=== PATIENT | female | born 1995 | race Caucasian/White ===

== ENCOUNTER → 2016-07-22 | Outpatient (CLI) | payer BC ==
--- NOTE | 2016-07-22 17:20 | US ---
EXAMINATION: Transvaginal pelvic ultrasound HISTORY: Bleeding COMPARISON: None TECHNIQUE: Grayscale and color Doppler images obtained transvaginally. FINDINGS: Uterus is normal in size, contour, and echogenicity without a focal uterine mass. There is an echogenic structure within the endometrial stripe consistent with 2-D. The IUD is noted within t he mid to lower uterine segment without extension into the cervical region. Both the left and right ovaries are normal in size, contour, and echogenicity demonstrating normal c olor and spectral Doppler flow. Small follicles are noted predominantly within the left ovary. No ad nexal masses. No significant free pelvic fluid. IMPRESSION: 1. International units edema noted within the mid to lower aspect of the uterus without extension to the cervical region. 2. Otherwise unremarkable pelvic ultrasound.
== END | disposition home or self-care (01) ==
LOC: MW.CHOBGYN 13:42
PROVIDERS: ATTEND Advanced Practice Midwife
DX: T83.9XXA Unspecified complication of genitourinary prosthetic device, implant and graft, initial encounter (principal); R60.9 Edema, unspecified
CPT/HCPCS: 76830; 76830-26

== ENCOUNTER 2018-06-22 11:21 | Emergency (ER) | payer BC ==
--- NOTE | 2018-06-22 12:07 | EDM.PDOC ---
ED HPI GENERAL MEDICAL PROBLEM - General Chief Complaint: Lower Extremity Injury/Pain Stated Complaint: INJURY TO FOOT Time Seen by Provider: 06/22/18 11:33 Source of Information: Reports: Patient History Limitations: Reports: No Limitations - History of Present Illness INITIAL COMMENTS - FREE TEXT/NARRATIVE: History of present illness: []Patient had a can and will over her right ankle yesterday and she fell down the stairs this morning. She went to her chiropractor's office who did x-rays and showed a malleolus fracture. She is here for splinting. Review of systems: As per history of present illness and below otherwise all systems reviewed and negative. Past medical history: As per history of present illness and as reviewed below otherwise noncontributory. Surgical history: As per history of present illness and as reviewed below otherwise noncontributory. Social history: No reported history of drug or alcohol abuse. Family history: As per history of present illness and as reviewed below otherwise noncontributory. Physical exam: General: Well developed, well nourished in NAD HEENT: Atraumatic, normocephalic, pupils reactive, negative for conjunctival pallor or scleral icterus, mucous membranes moist, throat clear, neck supple, nontender, trachea midline. Lungs: Clear to auscultation, breath sounds equal bilaterally, chest nontender. Heart: S1S2, regular, negative for clicks, rubs, or JVD. Abdomen: NABS, Soft, nondistended, nontender. Negative for masses or hepatosplenomegaly. Negative for costovertebral tenderness. Pelvis: Stable nontender. Genitourinary: Deferred. Rectal: Deferred. Extremities: Atraumatic, negative for cords or calf pain. Neurovascular unremarkable. Neuro: Awake, alert, oriented. Cranial nerves II through XII unremarkable. Cerebellum unremarkable. Motor and sensory unremarkable throughout. Exam nonfocal. Skin:warm and dry Diagnostics: None Therapeutics: Declined ED Course: Stable Impression: Right ankle fracture Prescriptions: Declined Plan: Ice, elevation, wear splint follow-up with ortho Definitive disposition and diagnosis as appropriate pending reevaluation and review of above. right ankle Pain Score (Numeric/FACES): 4 - Related Data Allergies Allergy/AdvReac Type Severity Reaction Status Date / Time No Known Allergies Allergy Verified 06/22/18 11:38 Home Meds: Home Meds . [No Known Home Meds] 06/22/18 [History] Past Medical History - Past Health History Medical/Surgical History: Denies Medical/Surgical History - Infectious Disease History Infectious Disease History: Reports: Chicken Pox - Past Surgical History GI Surgical History: Reports: Cholecystectomy Social & Family History - Family History Family Medical History: Noncontributory - Tobacco Use Smoking Status *Q: Never Smoker - Recreational Drug Use Recreational Drug Use: No Review of Systems - Review of Systems Review Of Systems: ROS reveals no pertinent complaints other than HPI. ED EXAM, GENERAL - Physical Exam Exam: See Below (The history of present illness) Course - Vital Signs Last Recorded V/S: Last Vital Signs Temp Pulse 98 06/22/18 11:52 Resp 18 06/22/18 11:52 BP 142/83 H 06/22/18 11:52 Pulse Ox 96 06/22/18 11:52 Departure - Departure Time of Disposition: 12:05 Disposition: Home, Self-Care 01 Condition: Good Clinical Impression: Ankle fracture, right Qualifiers: Encounter type: initial encounter Fracture type: closed Qualified Code(s): S82.891A - Other fracture of right lower leg, initial encounter for closed fracture - Discharge Information *PRESCRIPTION DRUG MONITORING PROGRAM REVIEWED*: No *COPY OF PRESCRIPTION DRUG MONITORING REPORT IN PATIENT CANDIE: No Referrals: PCP,Unknown [Primary Care Provider] - Forms: ED Department Discharge Additional Instructions: The following information is given to patients seen in the emergency department who are being discharged to home. This information is to outline your options for follow-up care. We provide all patients seen in our emergency department with a follow-up referral. The need for follow-up, as well as the timing and circumstances, are variable depending upon the specifics of your emergency department visit. If you don't have a primary care physician on staff, we will provide you with a referral. We always advise you to contact your personal physician following an emergency department visit to inform them of the circumstance of the visit and for follow-up with them and/or the need for any referrals to a consulting specialist. The emergency department will also refer you to a specialist when appropriate. This referral assures that you have the opportunity for follow-up care with a specialist. All of these measure are taken in an effort to provide you with optimal care, which includes your follow-up. Under all circumstances we always encourage you to contact your private physician who remains a resource for coordinating your care. When calling for follow-up care, please make the office aware that this follow-up is from your recent emergency room visit. If for any reason you are refused follow-up, please contact the [facility] Emergency Department at and asked to speak to the emergency department charge nurse. Follow-up with Dr. Barnett except available appointment [facility] - [facility] Professional Building [address] [place] [address], [address] [place] [address]
== END 2018-06-22 12:10 | disposition home or self-care (01) ==
LOC: MW.ED 11:21
DX: S82.891A Other fracture of right lower leg, initial encounter for closed fracture (principal); W10.9XXA Fall (on) (from) unspecified stairs and steps, initial encounter
CPT/HCPCS: 99282

== ENCOUNTER 2019-04-04 21:27 | Emergency (ER) | payer BC ==
[2019-04-04] MEDS ORDERED: Ondansetron 4 MG/2 ML SDV IVPUSH ONE (21:42)
[2019-04-04] MEDS ORDERED: Sodium Chloride 0.9% 1,000 ML IV ONE (21:42)
--- NOTE | 2019-04-04 23:03 | EDM.PDOC ---
ED HPI GENERAL MEDICAL PROBLEM - General Chief Complaint: MANAGER PAYROLL Problem Stated Complaint: 14WKS VOMITTING Time Seen by Provider: 04/04/19 23:03 Source of Information: Reports: Patient History Limitations: Reports: No Limitations - History of Present Illness INITIAL COMMENTS - FREE TEXT/NARRATIVE: HISTORY OF PRESENT ILLNESS: Patient is a 23-year-old G1, P0 at 14 weeks who presents with vomiting. Patient states she has had emesis throughout and has been started on multiple medications by her MANAGER PAYROLL including: Reglan, Zofran, Diclegis, Promethazine without relief of symptoms. Has had a multiple episodes of nonbloody nonbilious emesis for the past 3 days unable to keep down p.o. Here for IV fluids. Denies any abdominal pain. No vaginal bleeding or discharge. No urinary symptoms. No fevers chills or rash. No neck stiffness. Has otherwise been in her normal state of health. Has had ultrasound done by her MANAGER PAYROLL which showed intrauterine according to patient. REVIEW OF SYSTEMS: Other than the symptoms associated with the present events, the following is reported with regard to recent health: General: (-) fever. HENT: (-) congestion. Respiratory: (-) cough. Cardiovascular: (-) chest pain. GI: (-) abdominal pain. (+) n/v : (-) urinary complaints. Musculoskeletal: (-) other aches or pains. Endocrine: (+) generalized weakness. Neurological: (-) localized weakness. Skin: (-) rash PAST MEDICAL HISTORY: reviewed as per nursing notes SOCIAL HISTORY: reviewed as per nursing notes, MEDICATIONS: Per nurse's note ALLERGIES: Per nurse's note, reviewed by me PHYSICAL EXAMINATION: GENERALIZED APPEARANCE: well developed, well nourished in mild distress VITAL SIGNS: Per nurse's note, reviewed by me SKIN: Warm, dry; (-) cyanosis; (-) rash. HEAD: (-) scalp swelling, (-) tenderness. EYES: (-) conjunctival pallor, (-) scleral icterus. ENMT: (-) stridor; mucous membranes moist. NECK: (-) tenderness, (-) stiffness, CHEST AND RESPIRATORY: (-) rales, (-) rhonchi, (-) wheezes; breath sounds equal bilaterally. HEART AND CARDIOVASCULAR: (-) irregularity; (-) murmur, (-) gallop. ABDOMEN AND GI: Soft; (-) tenderness, (-) guarding, (-) rebound, (-) palpable masses, (-) CVAT EXTREMITIES: (-) deformity, (-) edema. NEURO AND PSYCH: Alert. Cranial nerves grossly intact; strength symmetric. gait steady DIAGNOSTICS: Labs reviewed: UA demonstrating UTI vs contamination EMERGENCY DEPARTMENT COURSE AND TREATMENT: Patient's condition improved during Emergency Department evaluation. Given 2L NS with improvement of symptoms. UA borderline. As she is , will err on the side of caution and start antibiotics. To f/u with OB tomorrow and return with any new or worsneing symptoms. Well hydrated and non-toxic at time of discharge. After history, physical exam, and diagnostic evaluation, the etiology for the patient's vomiting is likely due to hyperemesis gravidarum. On serial examination, the abdomen remained soft without peritoneal signs. Laboratory data was non- diagnostic. After treatment, vomiting resolved and hydration status was satisfactory. I think the patient is at low risk for significant abdominal pathology based on serial exams and evaluation. . The patient's questions were answered, and discharge precautions and reasons to return to the ED were discussed. PLAN AND FOLLOW-UP: Patient received written and verbal instructions regarding this condition. Return to ED immediately with any new or worsening symptoms. Follow up to be arranged by Patient with OB tomorrow for further evaluation. Given discharge precautions. Patient expressed verbal understanding. - Related Data Allergies Allergy/AdvReac Type Severity Reaction Status Date / Time No Known Allergies Allergy Verified 04/04/19 22:19 Home Meds: Home Meds Vit37/Iron/Folic Acid [Prenata] 1 each PO DAILY 04/04/19 [History] Promethazine HCl 12.5 mg PO ASDIRECTED 04/04/19 [History] Nitrofurantoin Monohyd/M-Cryst [Macrobid 100 mg Capsule] 100 mg PO BID #10 capsule 04/05/19 [Rx] Past Medical History - Past Health History Medical/Surgical History: Denies Medical/Surgical History HEENT History: Reports: None Cardiovascular History: Reports: None Respiratory History: Reports: None Genitourinary History: Reports: None MANAGER PAYROLL History: Reports: Other MANAGER PAYROLL History: currently 14 weeks Musculoskeletal History: Reports: None Neurological History: Reports: None Psychiatric History: Reports: None Endocrine/Metabolic History: Reports: None Hematologic History: Reports: None Immunologic History: Reports: None Oncologic (Cancer) History: Reports: None Dermatologic History: Reports: None - Infectious Disease History Infectious Disease History: Reports: Chicken Pox - Past Surgical History Head Surgeries/Procedures: Reports: None HEENT Surgical History: Reports: Oral Surgery GI Surgical History: Reports: Cholecystectomy Social & Family History - Family History Family Medical History: Noncontributory - Tobacco Use Smoking Status *Q: Never Smoker - Recreational Drug Use Recreational Drug Use: No ED ROS GENERAL - Review of Systems Review Of Systems: See Below (see dictation) ED EXAM, GENERAL - Physical Exam Exam: See Below (see dictation) Course - Vital Signs Last Recorded V/S: Last Vital Signs Temp 97.5 F 04/04/19 22:16 Pulse 91 04/04/19 22:16 Resp 16 04/04/19 22:16 BP 119/71 04/04/19 22:16 Pulse Ox 98 04/04/19 22:16 - Orders/Labs/Meds Orders: Active Orders 24 hr Category Date Time Status Heart Tones [ Heart Rate] [RC] Click to Edit Care 04/04/19 21:37 Active CULTURE URINE [RM] Stat Lab 04/04/19 22:23 Received Labs: Laboratory Tests 04/04/19 04/04/19 04/04/19 Range/Units 22:23 23:25 23:25 WBC 6.73 (4.0-11.0) K/uL RBC 4.26 L (4.30-5.90) M/uL Hgb 13.0 (12.0-16.0) g/dL Hct 37.3 (36.0-46.0) % MCV 87.6 (80.0-98.0) fL MCH 30.5 (27.0-32.0) pg MCHC 34.9 (31.0-37.0) g/dL RDW Std Deviation 39.4 (28.0-62.0) fl RDW Coeff of Mariely 12 (11.0-15.0) % Plt Count 218 (150-400) K/uL MPV 10.10 (7.40-12.00) fL Neut % (Auto) 71.9 (48.0-80.0) % Lymph % (Auto) 22.4 (16.0-40.0) % [place] % (Auto) 4.9 (0.0-15.0) % Eos % (Auto) 0.7 (0.0-7.0) % Baso % (Auto) 0.1 (0.0-1.5) % Neut # (Auto) 4.8 (1.4-5.7) K/uL Lymph # (Auto) 1.5 (0.6-2.4) K/uL [place] # (Auto) 0.3 (0.0-0.8) K/uL Eos # (Auto) 0.1 (0.0-0.7) K/uL Baso # (Auto) 0.0 (0.0-0.1) K/uL Nucleated RBC % 0.0 /100WBC Nucleated RBCs # 0 K/uL Sodium 139 (136-145) mmol/L Potassium 4.2 (3.5-5.1) mmol/L Chloride 104 (98-107) mmol/L Carbon Dioxide 25.9 (21.0-32.0) mmol/L BUN 6 L (7.0-18.0) mg/dL Creatinine 0.7 (0.6-1.0) mg/dL Est Cr Clr Drug Dosing 110.55 mL/min Estimated GFR (MDRD) > 60.0 ml/min Glucose 93 (74-106) mg/dL Calcium 8.8 (8.5-10.1) mg/dL Total Bilirubin 0.5 (0.2-1.0) mg/dL AST 10 L (15-37) IU/L ALT 14 (14-63) IU/L Alkaline Phosphatase 47 (46-116) U/L Total Protein 6.6 (6.4-8.2) g/dL Albumin 3.3 L (3.4-5.0) g/dL Globulin 3.3 (2.6-4.0) g/dL Albumin/Globulin Ratio 1.0 (0.9-1.6) Urine Color YELLOW Urine Appearance SLT CLOUDY Urine pH 6.0 (5.0-8.0) Ur Specific [place] >= 1.030 (1.001-1.035) Urine Protein TRACE H (NEGATIVE) mg/dL Urine Glucose (UA) NEGATIVE (NEGATIVE) mg/dL Urine Ketones >=80 (NEGATIVE) mg/dL Urine Occult Blood NEGATIVE (NEGATIVE) Urine Nitrite NEGATIVE (NEGATIVE) Urine Bilirubin SMALL H (NEGATIVE) Urine Ictotest NEGATIVE Urine Urobilinogen 1.0 (<2.0) EU/dL Ur Leukocyte Esterase TRACE H (NEGATIVE) Urine RBC 0-2 (0-2/HPF) Urine WBC 0-3 (0-5/HPF) Ur Epithelial Cells MANY (NONE-FEW) Urine Bacteria 1+ H (NEGATIVE) Urine Mucus MODERATE (NONE-MOD) Meds: Medications Discontinued Medications Generic Name Dose Route Start Last Admin Trade Name Freq PRN Reason Stop Dose Admin Sodium Chloride 1,000 mls @ 999 mls/hr 04/04/19 21:42 04/04/19 22:49 Normal Saline IV 04/04/19 22:42 999 mls/hr STAT ONE Administration Sodium Chloride 1,000 mls @ 1,000 mls/hr 04/05/19 00:53 04/05/19 01:22 Normal Saline IV 04/05/19 01:52 1,000 mls/hr .Bolus ONE Administration Ondansetron HCl 4 mg 04/04/19 21:42 04/04/19 22:49 Zofran IVPUSH 04/04/19 21:43 4 mg ONETIME ONE Administration Departure - Departure Time of Disposition: 02:53 Disposition: Home, Self-Care 01 Condition: Good Clinical Impression: Hyperemesis gravidarum, UTI (urinary tract infection) - Discharge Information *PRESCRIPTION DRUG MONITORING PROGRAM REVIEWED*: Not Applicable *COPY OF PRESCRIPTION DRUG MONITORING REPORT IN PATIENT CANDIE: Not Applicable Prescriptions: Nitrofurantoin Monohyd/M-Cryst [Macrobid 100 mg Capsule] 100 mg PO BID #10 capsule Instructions: Eating Plan for Hyperemesis Gravidarum, Hyperemesis Gravidarum, Urinary Tract Infection, Adult, [id number] Referrals: Eve Morley CNM [Primary Care Provider] - 1 Day Forms: ED Department Discharge Additional Instructions: The following information is given to patients seen in the emergency department who are being discharged to home. This information is to outline your options for follow-up care. We provide all patients seen in our emergency department with a follow-up referral. The need for follow-up, as well as the timing and circumstances, are variable depending upon the specifics of your emergency department visit. If you don't have a primary care physician on staff, we will provide you with a referral. We always advise you to contact your personal physician following an emergency department visit to inform them of the circumstance of the visit and for follow-up with them and/or the need for any referrals to a consulting specialist. The emergency department will also refer you to a specialist when appropriate. This referral assures that you have the opportunity for follow-up care with a specialist. All of these measure are taken in an effort to provide you with optimal care, which includes your follow-up. Under all circumstances we always encourage you to contact your private physician who remains a resource for coordinating your care. When calling for follow-up care, please make the office aware that this follow-up is from your recent emergency room visit. If for any reason you are refused follow-up, please contact the [facility] Emergency Department at and asked to speak to the emergency department charge nurse. Sepsis Event Note - Evaluation Sepsis Screening Result: No Definite Risk - Focused Exam Vital Signs: Vital Signs Temp Pulse Resp BP Pulse Ox 04/04/19 22:16 97.5 F 91 16 119/71 98 Date Exam was Performed: 04/05/19 Time Exam was Performed: 03:04
[2019-04-04 23:53] LABS: BLOOD UREA NITROGEN,BUN 6 mg/dL (7.0-18.0); CARBON DIOXIDE,CO2 25.9 mmol/L (21.0-32.0); CHLORIDE,CL 104 mmol/L (98-107); GLUCOSE RANDOM 93 mg/dL (74-106); POTASSIUM,K 4.2 mmol/L (3.5-5.1); SODIUM,NA 139 mmol/L (136-145)
[2019-04-05] MEDS ORDERED: Sodium Chloride 0.9% 1,000 ML IV ONE (00:53)
== END 2019-04-05 03:15 | disposition home or self-care (01) ==
LOC: MW.ED 21:27
DX: O21.0 Mild hyperemesis gravidarum (principal); O23.41 Unspecified infection of urinary tract in pregnancy, first trimester; Z3A.14 14 weeks gestation of pregnancy
CPT/HCPCS: 36415; 80053; 81001; 85025; 87086; 96361; 96374; 99284; J2405; J7030; 99283

== ENCOUNTER 2019-10-01 16:53 | Inpatient (IN) | payer BC ==
[2019-10-01] MEDS ORDERED: Lidocaine 1% 50 ML MDV INJECT PRN (17:39)
[2019-10-01] MEDS ORDERED: Misoprostol 25 MCG (1/4 of 100 MCG) Tab VAG PRN (17:39)
[2019-10-01] MEDS ORDERED: Misoprostol 200 MCG Tab PO PRN (17:39)
[2019-10-01] MEDS ORDERED: Ondansetron 4 MG/2 ML SDV IVPUSH PRN (17:39)
[2019-10-01] MEDS ORDERED: Tranexamic Acid 1,000 MG in Sodium Chloride 0.9% 100 ML IV PRN (17:39)
[2019-10-01] MEDS ORDERED: Terbutaline 1 MG/ML SDV SUBCUT PRN (17:39)
[2019-10-01] MEDS ORDERED: Water For Irrigation,Sterile 1,000 ML Container IRR PRN (17:39)
[2019-10-01] MEDS ORDERED: Butorphanol 1 MG/ML SDV IVPUSH PRN (17:39)
[2019-10-01] MEDS ORDERED: Sodium Chloride 0.9% 10 ML SDV IV PRN (17:39)
[2019-10-01] MEDS ORDERED: Carboprost Tromethamine 250 MCG/1 ML Amp IM PRN (17:39)
[2019-10-01] MEDS ORDERED: Methylergonovine 0.2 MG/1 ML Amp IM PRN (17:39)
[2019-10-01] MEDS ORDERED: Oxytocin/0.9 % Sodium Chloride 30 UNIT/500 ML BAG IV SCH ×2 (17:45)
[2019-10-01] MEDS: Lactated Ringers 1,000 ML IV SCH (18:32)
[2019-10-01] MEDS: Misoprostol 25 MCG (1/4 of 100 MCG) Tab VAG PRN (22:25)
[2019-10-02] MEDS: Misoprostol 25 MCG (1/4 of 100 MCG) Tab VAG PRN ×2 (02:45→07:53)
[2019-10-02] MEDS: Lactated Ringers 1,000 ML IV SCH ×2 (02:55→20:22)
[2019-10-02] MEDS ORDERED: fentaNYL 100 MCG/2 ML SDV ONE (16:31)
[2019-10-02] MEDS ORDERED: Ropivacaine HCl/PF 100 ML ONE (16:32)
--- NOTE | 2019-10-02 17:14 | PCM.PREANE ---
Preanesthetic Assessment - Procedure Proposed Procedure: Continuous labor epidural - Anesthesia/Transfusion/Family Hx Anesthesia History: Prior Anesthesia Without Reaction (Cholecystectomy without anesthesia complications) Family History of Anesthesia Reaction: No Transfusion History: No Prior Transfusion(s) - Review of Systems General: No Symptoms Pulmonary: No Symptoms Cardiovascular: No Symptoms Gastrointestinal: Nausea (Pt reports nausea/vomiting throughout . Symptom unchanged at present.), Vomiting Neurological: No Symptoms Other: Reports: None - Physical Assessment NPO Status Date: 10/02/19 (Clear liquids) NPO Status Time: 16:00 (Clear liquids) Height: 1.65 m Weight: 80.739 kg ASA Class: 2 Mental Status: Alert & Oriented x3 Airway Class: Mallampati = 2 Dentition: Reports: Normal Dentition Thyro-Mental Finger Breadths: 4 ROM/Head Extension: Full Lungs: Normal Respiratory Effort Cardiovascular: Regular Rate, Regular Rhythm - Lab Values: Laboratory Last Values WBC 9.89 K/uL (4.0-11.0) 10/01/19 17: RBC 4.26 M/uL (4.30-5.90) L 10/01/19 17:28 Hgb 13.0 g/dL (12.0-16.0) 10/01/19 17:28 Hct 38.7 % (36.0-46.0) 10/01/19 17:28 MCV 90.8 fL (80.0-98.0) 10/01/19 17:28 MCH 30.5 pg (27.0-32.0) 10/01/19 17: MCHC 33.6 g/dL (31.0-37.0) 10/01/19 17:28 RDW Std Deviation 42.1 fl (28.0-62.0) 10/01/19 17:28 RDW Coeff of Mariely 13 % (11.0-15.0) 10/01/19 17: Plt Count 224 K/uL (150-400) 10/01/19 17: MPV 11.80 fL (7.40-12.00) 10/01/19 17:28 Nucleated RBC % 0.0 /100WBC 10/01/19 17:28 Nucleated RBCs # 0 K/uL 10/01/19 17:28 COVID-19 (JILL) NEGATIVE (NEGATIVE) 10/01/19 17:32 Blood Type B NEGATIVE 10/01/19 18:00 Antibody Screen NEGATIVE 10/01/19 18:00 - Allergies Allergies/Adverse Reactions: Allergies Allergy/AdvReac Type Severity Reaction Status Date / Time No Known Allergies Allergy Verified 04/04/19 22:19 - Acknowledgements Anesthesia Type Planned: Epidural Pt an Appropriate Candidate for the Planned Anesthesia: Yes Alternatives and Risks of Anesthesia Discussed w Pt/Guardian: Yes Pt/Guardian Understands and Agrees with Anesthesia Plan: Yes Additional Comments: Pt assessed at 1632. Also discussed risks, benefits, and alternatives to epidural with patient and S.O.. All questions answered and concerns addressed. Pt consented by COMMERCIAL CREDIT SPECIALIST with RN witness present. 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: Other OB/BYN History: currently 14 weeks Musculoskeletal History: Reports: None Neurological History: Reports: None Psychiatric History: Reports: None Endocrine/Metabolic History: Reports: None Hematologic History: Reports: None Immunologic History: Reports: None Oncologic (Cancer) History: Reports: None Dermatologic History: Reports: None - Infectious Disease History Infectious Disease History: Reports: Chicken Pox - Past Surgical History Head Surgeries/Procedures: Reports: None HEENT Surgical History: Reports: Oral Surgery GI Surgical History: Reports: Cholecystectomy - HOME MEDS Home Medications: Home Meds Vit37/Iron/Folic Acid [Prenata] 1 each PO DAILY 04/04/19 [History] Promethazine HCl 12.5 mg PO ASDIRECTED 04/04/19 [History] Nitrofurantoin Monohyd/M-Cryst [Macrobid 100 mg Capsule] 100 mg PO BID #10 capsule 04/05/19 [Rx] - CURRENT (IN HOUSE) MEDS Current Meds: Current Medications Butorphanol Tartrate (Stadol) 1 mg IVPUSH Q1H PRN PRN Reason: Pain Carboprost Tromethamine (Hemabate Ds) 250 mcg IM ASDIRECTED PRN PRN Reason: Post Hemorrhage Oxytocin/Sodium Chloride (Oxytocin 30 Unit/500 Ml-Ns) 30 unit in 500 mls @ 2 mls/hr IV TITRATE PAYAM; Protocol Last Titration: 10/02/19 15:00 Dose: 8 munits/min, 8 mls/hr Documented by: Lactated Ringer's (Ringers, Lactated) 1,000 mls @ 150 mls/hr IV ASDIRECTED [facility] Last Admin: 10/02/19 02:55 Dose: 150 mls/hr Documented by: Oxytocin/Sodium Chloride (Oxytocin 30 Unit/500 Ml-Ns) 30 unit in 500 mls @ 999 mls/hr IV TITRATE [facility] Tranexamic Acid 1,000 mg/ (Sodium Chloride) 110 mls @ 660 mls/hr IV ONETIME PRN PRN Reason: Bleeding Lidocaine HCl (Xylocaine 1%) 50 ml INJECT ONETIME PRN PRN Reason: Laceration repair Methylergonovine Maleate (Methergine) 0.2 mg IM ASDIRECTED PRN PRN Reason: Post Hemorrhage Misoprostol (Cytotec) 25 mcg VAG ONETIME PRN PRN Reason: Cervical Ripening Last Admin: 10/01/19 18:32 Dose: 25 mcg Documented by: Misoprostol (Cytotec) 25 mcg VAG Q4H PRN PRN Reason: Cervical Ripening Last Admin: 10/02/19 07:53 Dose: 25 mcg Documented by: Misoprostol (Cytotec) 200 mcg PO ONETIME PRN PRN Reason: Post Hemorrhage Ondansetron HCl (Zofran) 4 mg IVPUSH Q4H PRN PRN Reason: Nausea/Vomiting Sodium Chloride (Normal Saline) 10 ml IV ASDIRECTED PRN PRN Reason: IV Use Sterile Water (Sterile Water For Irrigation) 1,000 ml IRR ASDIRECTED PRN PRN Reason: delivery Terbutaline Sulfate (Brethine) 0.25 mg SUBCUT ASDIRECTED PRN PRN Reason: Tacysystole Discontinued Medications Fentanyl (Sublimaze) Confirm Administered Dose 200 mcg .ROUTE .STK-MED ONE Stop: 10/02/19 16:32 Ropivacaine (Naropin 0.2%) Confirm Administered Dose 100 mls @ as directed .ROUTE .STK-MED ONE Stop: 10/02/19 16:33
[2019-10-02] MEDS ORDERED: Bisacodyl 10 MG Supp RECTAL PRN (22:41)
[2019-10-02] MEDS ORDERED: Witch Hazel Medicated Pads 40/Jar TOP PRN (22:41)
[2019-10-02] MEDS ORDERED: Lanolin 100% Cream 7 GM Tube TOP PRN (22:41)
[2019-10-02] MEDS ORDERED: Docusate Sodium 100 MG Cap PO PRN (22:41)
[2019-10-02] MEDS ORDERED: Benzocaine/Menthol 20%-0.5% Spray 78 GM Cannister TOP PRN (22:41)
[2019-10-02] MEDS ORDERED: Acetaminophen 500 MG Tab PO PRN (22:41)
[2019-10-02] MEDS ORDERED: oxyCODONE 5 MG Tab PO PRN (22:41)
--- NOTE | 2019-10-02 22:48 | PCM.DEL ---
<Jose C Vaughan - Last Filed: 10/02/19 22:42> L & D Note - General Info Date of Service: 10/02/19 - Delivery Note Labor: Spontaneous, Augmented by Oxytocin Cervical Ripening Method: Misoprostil Delivery Outcome: Livebirth Infant Delivery Method: Spontaneous Vaginal Delivery-Single Infant Delivery Mode: Spontaneous Presentation: Left Occiput Anterior (DIANE) Nuchal Cord: None (Body cord) Anesthesia Type: Epidural Amniotic Fluid Description: Clear Episiotomy Type: None Laceration: 1st Degree Suture type: Vicryl Suture size: 2-0 Placenta: Intact, Spontaneous Cord: 3 Vessels Estimated Blood Loss: 300 Resuscitation Needed: No : Suctioned, Bulb Syringe, Stimulated, Warmed, Addison Used, Warmer Used Score 1 min: 8 Score 5 min: 9 Delivery Comments (Free Text/Narrative):: Liveborn male born at 2213 weighing 4270g, apgars 8 and 9 - General Info Date of Service: 10/02/19 - Patient Data Weight - Most Recent: 80.739 kg Med Orders - Current: Current Medications Butorphanol Tartrate (Stadol) 1 mg IVPUSH Q1H PRN PRN Reason: Pain Carboprost Tromethamine (Hemabate Ds) 250 mcg IM ASDIRECTED PRN PRN Reason: Post Hemorrhage Oxytocin/Sodium Chloride (Oxytocin 30 Unit/500 Ml-Ns) 30 unit in 500 mls @ 2 mls/hr IV TITRATE PAYAM; Protocol Last Titration: 10/02/19 19:20 Dose: 12 munits/min, 12 mls/hr Documented by: Lactated Ringer's (Ringers, Lactated) 1,000 mls @ 150 mls/hr IV ASDIRECTED PAYAM Last Admin: 10/02/19 20:22 Dose: 150 mls/hr Documented by: Oxytocin/Sodium Chloride (Oxytocin 30 Unit/500 Ml-Ns) 30 unit in 500 mls @ 999 mls/hr IV TITRATE PAYAM Tranexamic Acid 1,000 mg/ (Sodium Chloride) 110 mls @ 660 mls/hr IV ONETIME PRN PRN Reason: Bleeding Lidocaine HCl (Xylocaine 1%) 50 ml INJECT ONETIME PRN PRN Reason: Laceration repair Methylergonovine Maleate (Methergine) 0.2 mg IM ASDIRECTED PRN PRN Reason: Post Hemorrhage Misoprostol (Cytotec) 25 mcg VAG ONETIME PRN PRN Reason: Cervical Ripening Last Admin: 10/01/19 18:32 Dose: 25 mcg Documented by: Misoprostol (Cytotec) 25 mcg VAG Q4H PRN PRN Reason: Cervical Ripening Last Admin: 10/02/19 07:53 Dose: 25 mcg Documented by: Misoprostol (Cytotec) 200 mcg PO ONETIME PRN PRN Reason: Post Hemorrhage Ondansetron HCl (Zofran) 4 mg IVPUSH Q4H PRN PRN Reason: Nausea/Vomiting Last Admin: 10/02/19 17:15 Dose: 4 mg Documented by: Sodium Chloride (Normal Saline) 10 ml IV ASDIRECTED PRN PRN Reason: IV Use Sterile Water (Sterile Water For Irrigation) 1,000 ml IRR ASDIRECTED PRN PRN Reason: delivery Terbutaline Sulfate (Brethine) 0.25 mg SUBCUT ASDIRECTED PRN PRN Reason: Tacysystole Discontinued Medications Fentanyl (Sublimaze) Confirm Administered Dose 200 mcg .ROUTE .STK-MED ONE Stop: 10/02/19 16:32 Ropivacaine (Naropin 0.2%) Confirm Administered Dose 100 mls @ as directed .ROUTE .SynackMED ONE Stop: 10/02/19 16:33 - Problem List & Annotations (1) Vaginal delivery SNOMED Code(s): 808846738 Code(s): O80 - ENCOUNTER FOR FULL-TERM UNCOMPLICATED DELIVERY Status: Acute Current Visit: Yes - Problem List Review Problem List Initiated/Reviewed/Updated: Yes - Assessment Assessment:: 24yo IOL for late term. S/P . No complications. - Plan Plan:: Admit to for routine care Encourage Monitor georgiana <Susi Charles - Last Filed: 10/02/19 22:51> L & D Note - General Info Mother's Due Date: 09/21/19 - Patient Data Med Orders - Current: Current Medications Acetaminophen (Tylenol Extra Strength) 1,000 mg PO Q6H PRN PRN Reason: Pain Benzocaine/Menthol (Dermoplast Pain Relief 20%-0.5% [place]) 78 gm TOP ASDIRECTED PRN PRN Reason: Perineal Comfort Measure Bisacodyl (Dulcolax) 10 mg RECTAL ONETIME PRN PRN Reason: Constipation Butorphanol Tartrate (Stadol) 1 mg IVPUSH Q1H PRN PRN Reason: Pain Carboprost Tromethamine (Hemabate Ds) 250 mcg IM ASDIRECTED PRN PRN Reason: Post Hemorrhage Docusate Sodium (Colace) 100 mg PO BID PRN PRN Reason: Constipation Emollient Ointment (Lansinoh Hpa) 0 gm TOP ASDIRECTED PRN PRN Reason: Sore Nipples Oxytocin/Sodium Chloride (Oxytocin 30 Unit/500 Ml-Ns) 30 unit in 500 mls @ 2 mls/hr IV TITRATE PAYAM; Protocol Last Titration: 10/02/19 19:20 Dose: 12 munits/min, 12 mls/hr Documented by: Lactated Ringer's (Ringers, Lactated) 1,000 mls @ 150 mls/hr IV ASDIRECTED PAYAM Last Admin: 10/02/19 20:22 Dose: 150 mls/hr Documented by: Oxytocin/Sodium Chloride (Oxytocin 30 Unit/500 Ml-Ns) 30 unit in 500 mls @ 999 mls/hr IV TITRATE PAYAM Tranexamic Acid 1,000 mg/ (Sodium Chloride) 110 mls @ 660 mls/hr IV ONETIME PRN PRN Reason: Bleeding Ibuprofen (Motrin) 800 mg PO Q8H PRN PRN Reason: Pain Lidocaine HCl (Xylocaine 1%) 50 ml INJECT ONETIME PRN PRN Reason: Laceration repair Methylergonovine Maleate (Methergine) 0.2 mg IM ASDIRECTED PRN PRN Reason: Post Hemorrhage Misoprostol (Cytotec) 25 mcg VAG ONETIME PRN PRN Reason: Cervical Ripening Last Admin: 10/01/19 18:32 Dose: 25 mcg Documented by: Misoprostol (Cytotec) 25 mcg VAG Q4H PRN PRN Reason: Cervical Ripening Last Admin: 10/02/19 07:53 Dose: 25 mcg Documented by: Misoprostol (Cytotec) 200 mcg PO ONETIME PRN PRN Reason: Post Hemorrhage Ondansetron HCl (Zofran) 4 mg IVPUSH Q4H PRN PRN Reason: Nausea/Vomiting Last Admin: 10/02/19 17:15 Dose: 4 mg Documented by: Oxycodone HCl (Oxycodone) 5 mg PO Q2H PRN PRN Reason: Pain Sodium Chloride (Normal Saline) 10 ml IV ASDIRECTED PRN PRN Reason: IV Use Sterile Water (Sterile Water For Irrigation) 1,000 ml IRR ASDIRECTED PRN PRN Reason: delivery Terbutaline Sulfate (Brethine) 0.25 mg SUBCUT ASDIRECTED PRN PRN Reason: Tacysystole Witch Sandra (Tucks) 1 pad TOP ASDIRECTED PRN PRN Reason: comfort care Discontinued Medications Fentanyl (Sublimaze) Confirm Administered Dose 200 mcg .ROUTE .STK-MED ONE Stop: 10/02/19 16:32 Ropivacaine (Naropin 0.2%) Confirm Administered Dose 100 mls @ as directed .ROUTE .STK-MED ONE Stop: 10/02/19 16:33 - My Orders Last 24 Hours: My Active Orders 10/02/19 22:41 Patient Status [ADT] Routine May Shower [RC] ASDIRECTED Notify Provider Vital Signs [RC] ASDIRECTED Up ad Zoie [RC] ASDIRECTED Vital Signs [RC] PER UNIT ROUTINE RHIG WORKUP, [BBK] Routine Acetaminophen [Tylenol Extra Strength] 1,000 mg PO Q6H PRN Benzocaine/Menthol [Dermoplast Pain Relief 20%-0.5% [place]] 78 gm TOP ASDIRECTED PRN Docusate Sodium [Colace] 100 mg PO BID PRN Ibuprofen [Motrin] 800 mg PO Q8H PRN Lanolin [Lansinoh HPA] See Dose Instructions TOP ASDIRECTED PRN bisacodyL [Dulcolax] 10 mg RECTAL ONETIME PRN oxyCODONE 5 mg PO Q2H PRN witch Sandra [Tucks] 1 pad TOP ASDIRECTED PRN Assess Lochia [WOMSER] Per Unit Routine Assess Uterine Involution [WOMSER] Per Unit Routine Breast Pump [WOMSER] Per Unit Routine Peripheral IV Discontinue [OM.PC] Routine Resuscitation Status Routine 10/02/19 22:42 Cooling Warming Measures [RC] ASDIRECTED Ice Therapy [OM.PC] Per Unit Routine Perineal Care [OM.PC] Per Unit Routine Sitz Bath [OM.PC] Per Unit Routine 10/03/19 05:11 HEMOGLOBIN/HEMATOCRIT,HH [HEME] Timed 10/03/19 Breakfast Regular Diet [DIET] - Plan Plan:: Rh negative, will perform Rhogam studies. Agree with the above. See dictation for more details.
[2019-10-03] MEDS: Ibuprofen 800 MG Tab PO PRN ×2 (00:44→11:21)
--- NOTE | 2019-10-03 08:03 | PCM.PNPP ---
<Jose C Vaughan - Last Filed: 10/03/19 07:58> - General Info Date of Service: 10/03/19 Subjective Update: Pt doing well today. Pain is mild and well-controlled with motrin. Has been ambulating well and tolerating oral intake. Bleeding is mild. going well. Functional Status: Reports: Pain Controlled - Review of Systems General: Reports: No Symptoms HEENT: Reports: No Symptoms Pulmonary: Reports: No Symptoms Cardiovascular: Reports: No Symptoms Gastrointestinal: Reports: Abdominal Pain Genitourinary: Reports: No Symptoms Musculoskeletal: Reports: No Symptoms Skin: Reports: No Symptoms Neurological: Reports: No Symptoms Psychiatric: Reports: No Symptoms - General Info Date of Service: 10/03/19 - Patient Data Vital Signs - Most Recent: Last Vital Signs Temp 97.6 F 10/03/19 07:55 Pulse 82 10/03/19 07:55 Resp 18 10/03/19 07:55 BP 126/72 10/03/19 07:55 Pulse Ox 95 10/03/19 07:55 Weight - Most Recent: 80.739 kg Lab Results - Last 24 Hours: Laboratory Results - last 24 hr 10/03/19 Range/Units 05:23 Hgb 11.6 L (12.0-16.0) g/dL Hct 34.5 L (36.0-46.0) % Med Orders - Current: Current Medications Acetaminophen (Tylenol Extra Strength) 1,000 mg PO Q6H PRN PRN Reason: Pain Benzocaine/Menthol (Dermoplast Pain Relief 20%-0.5% [place]) 78 gm TOP ASDIRECTED PRN PRN Reason: Perineal Comfort Measure Last Admin: 10/03/19 00:44 Dose: 1 applic Documented by: Bisacodyl (Dulcolax) 10 mg RECTAL ONETIME PRN PRN Reason: Constipation Butorphanol Tartrate (Stadol) 1 mg IVPUSH Q1H PRN PRN Reason: Pain Carboprost Tromethamine (Hemabate Ds) 250 mcg IM ASDIRECTED PRN PRN Reason: Post Hemorrhage Docusate Sodium (Colace) 100 mg PO BID PRN PRN Reason: Constipation Emollient Ointment (Lansinoh Hpa) 0 gm TOP ASDIRECTED PRN PRN Reason: Sore Nipples Oxytocin/Sodium Chloride (Oxytocin 30 Unit/500 Ml-Ns) 30 unit in 500 mls @ 2 mls/hr IV TITRATE PAYAM; Protocol Last Titration: 10/02/19 19:20 Dose: 12 munits/min, 12 mls/hr Documented by: Lactated Ringer's (Ringers, Lactated) 1,000 mls @ 150 mls/hr IV ASDIRECTED PAYAM Last Admin: 10/02/19 20:22 Dose: 150 mls/hr Documented by: Oxytocin/Sodium Chloride (Oxytocin 30 Unit/500 Ml-Ns) 30 unit in 500 mls @ 999 mls/hr IV TITRATE PAYAM Tranexamic Acid 1,000 mg/ (Sodium Chloride) 110 mls @ 660 mls/hr IV ONETIME PRN PRN Reason: Bleeding Ibuprofen (Motrin) 800 mg PO Q8H PRN PRN Reason: Pain Last Admin: 10/03/19 00:44 Dose: 800 mg Documented by: Lidocaine HCl (Xylocaine 1%) 50 ml INJECT ONETIME PRN PRN Reason: Laceration repair Methylergonovine Maleate (Methergine) 0.2 mg IM ASDIRECTED PRN PRN Reason: Post Hemorrhage Misoprostol (Cytotec) 25 mcg VAG ONETIME PRN PRN Reason: Cervical Ripening Last Admin: 10/01/19 18:32 Dose: 25 mcg Documented by: Misoprostol (Cytotec) 25 mcg VAG Q4H PRN PRN Reason: Cervical Ripening Last Admin: 10/02/19 07:53 Dose: 25 mcg Documented by: Misoprostol (Cytotec) 200 mcg PO ONETIME PRN PRN Reason: Post Hemorrhage Ondansetron HCl (Zofran) 4 mg IVPUSH Q4H PRN PRN Reason: Nausea/Vomiting Last Admin: 10/02/19 17:15 Dose: 4 mg Documented by: Oxycodone HCl (Oxycodone) 5 mg PO Q2H PRN PRN Reason: Pain Sodium Chloride (Normal Saline) 10 ml IV ASDIRECTED PRN PRN Reason: IV Use Sterile Water (Sterile Water For Irrigation) 1,000 ml IRR ASDIRECTED PRN PRN Reason: delivery Terbutaline Sulfate (Brethine) 0.25 mg SUBCUT ASDIRECTED PRN PRN Reason: Tacysystole Witch Sandra (Tucks) 1 pad TOP ASDIRECTED PRN PRN Reason: comfort care Last Admin: 10/03/19 00:43 Dose: 1 applic Documented by: Discontinued Medications Fentanyl (Sublimaze) Confirm Administered Dose 200 mcg .ROUTE .STK-MED ONE Stop: 10/02/19 16:32 Ropivacaine (Naropin 0.2%) Confirm Administered Dose 100 mls @ as directed .ROUTE .STK-MED ONE Stop: 10/02/19 16:33 - Interaction Support Person: - Exam General: Alert, Oriented, No Acute Distress HEENT: Pupils Equal, EOMI Neck: Supple, No JVD Lungs: Clear to Auscultation, Normal Respiratory Effort. No: Crackles, Rales, Rhonchi, Wheezing Cardiovascular: Regular Rate, Regular Rhythm, No Murmurs. No: Gallops, Rubs GI/Abdominal Exam: Normal Bowel Sounds, Soft, No Distention, Tender. No: Guarding, Rigid Extremities: Normal Inspection, Non-Tender, Pedal Edema Skin: Warm, Dry, Intact Neurological: No New Focal Deficit, Normal Speech, Normal Tone Psy/Mental Status: Alert, Normal Affect, Normal Mood - Problem List & Annotations (1) Vaginal delivery SNOMED Code(s): 484795715 Code(s): O80 - ENCOUNTER FOR FULL-TERM UNCOMPLICATED DELIVERY Status: Acute Current Visit: Yes - Problem List Review Problem List Initiated/Reviewed/Updated: Yes - Assessment Assessment:: 24yo IOL for late term. S/P . No complications. PPD#1 - Plan Plan:: Routine care. Discharge at 24 hours Baby blood B negative, no RhoGam needed <Susi Charles - Last Filed: 10/03/19 08:10> - General Info Functional Status: Reports: Ambulating, Urinating - Patient Data Vital Signs - Most Recent: Last Vital Signs Temp 36.4 C 10/03/19 07:55 Pulse 82 10/03/19 07:55 Resp 18 10/03/19 07:55 BP 126/72 10/03/19 07:55 Pulse Ox 95 10/03/19 07:55 Lab Results - Last 24 Hours: Laboratory Results - last 24 hr 10/03/19 Range/Units 05:23 Hgb 11.6 L (12.0-16.0) g/dL Hct 34.5 L (36.0-46.0) % Med Orders - Current: Current Medications Acetaminophen (Tylenol Extra Strength) 1,000 mg PO Q6H PRN PRN Reason: Pain Benzocaine/Menthol (Dermoplast Pain Relief 20%-0.5% [place]) 78 gm TOP ASDIRECTED PRN PRN Reason: Perineal Comfort Measure Last Admin: 10/03/19 00:44 Dose: 1 applic Documented by: Bisacodyl (Dulcolax) 10 mg RECTAL ONETIME PRN PRN Reason: Constipation Butorphanol Tartrate (Stadol) 1 mg IVPUSH Q1H PRN PRN Reason: Pain Carboprost Tromethamine (Hemabate Ds) 250 mcg IM ASDIRECTED PRN PRN Reason: Post Hemorrhage Docusate Sodium (Colace) 100 mg PO BID PRN PRN Reason: Constipation Emollient Ointment (Lansinoh Hpa) 0 gm TOP ASDIRECTED PRN PRN Reason: Sore Nipples Oxytocin/Sodium Chloride (Oxytocin 30 Unit/500 Ml-Ns) 30 unit in 500 mls @ 2 mls/hr IV TITRATE PAYAM; Protocol Last Titration: 10/02/19 19:20 Dose: 12 munits/min, 12 mls/hr Documented by: Lactated Ringer's (Ringers, Lactated) 1,000 mls @ 150 mls/hr IV ASDIRECTED PAYAM Last Admin: 10/02/19 20:22 Dose: 150 mls/hr Documented by: Oxytocin/Sodium Chloride (Oxytocin 30 Unit/500 Ml-Ns) 30 unit in 500 mls @ 999 mls/hr IV TITRATE PAYAM Tranexamic Acid 1,000 mg/ (Sodium Chloride) 110 mls @ 660 mls/hr IV ONETIME PRN PRN Reason: Bleeding Ibuprofen (Motrin) 800 mg PO Q8H PRN PRN Reason: Pain Last Admin: 10/03/19 00:44 Dose: 800 mg Documented by: Lidocaine HCl (Xylocaine 1%) 50 ml INJECT ONETIME PRN PRN Reason: Laceration repair Methylergonovine Maleate (Methergine) 0.2 mg IM ASDIRECTED PRN PRN Reason: Post Hemorrhage Misoprostol (Cytotec) 25 mcg VAG ONETIME PRN PRN Reason: Cervical Ripening Last Admin: 10/01/19 18:32 Dose: 25 mcg Documented by: Misoprostol (Cytotec) 25 mcg VAG Q4H PRN PRN Reason: Cervical Ripening Last Admin: 10/02/19 07:53 Dose: 25 mcg Documented by: Misoprostol (Cytotec) 200 mcg PO ONETIME PRN PRN Reason: Post Hemorrhage Ondansetron HCl (Zofran) 4 mg IVPUSH Q4H PRN PRN Reason: Nausea/Vomiting Last Admin: 10/02/19 17:15 Dose: 4 mg Documented by: Oxycodone HCl (Oxycodone) 5 mg PO Q2H PRN PRN Reason: Pain Sodium Chloride (Normal Saline) 10 ml IV ASDIRECTED PRN PRN Reason: IV Use Sterile Water (Sterile Water For Irrigation) 1,000 ml IRR ASDIRECTED PRN PRN Reason: delivery Terbutaline Sulfate (Brethine) 0.25 mg SUBCUT ASDIRECTED PRN PRN Reason: Tacysystole Witch Sandra (Tucks) 1 pad TOP ASDIRECTED PRN PRN Reason: comfort care Last Admin: 10/03/19 00:43 Dose: 1 applic Documented by: Discontinued Medications Fentanyl (Sublimaze) Confirm Administered Dose 200 mcg .ROUTE .STK-MED ONE Stop: 10/02/19 16:32 Ropivacaine (Naropin 0.2%) Confirm Administered Dose 100 mls @ as directed .ROUTE .STK-MED ONE Stop: 10/02/19 16:33 - Interaction Infant Disposition, : in Room with Family Infant Interaction: Holding Infant Feeding: Breastfed Infant; Nursed Well - Recovery Exam Fundal Tone: Firm Fundal Level: 2 Fingerbreadths Below Umbilicus Fundal Placement: Midline Lochia Color: Rubra/Red Bladder Status: Voiding Urinary Elimination: Voided - Problem List & Annotations (1) Vaginal delivery SNOMED Code(s): 073836721 Code(s): O80 - ENCOUNTER FOR FULL-TERM UNCOMPLICATED DELIVERY Status: Acute Current Visit: Yes - My Orders Last 24 Hours: My Active Orders 10/02/19 22:41 Patient Status [ADT] Routine May Shower [RC] ASDIRECTED Notify Provider Vital Signs [RC] ASDIRECTED Up ad Zoie [RC] ASDIRECTED Vital Signs [RC] PER UNIT ROUTINE Acetaminophen [Tylenol Extra Strength] 1,000 mg PO Q6H PRN Benzocaine/Menthol [Dermoplast Pain Relief 20%-0.5% [place]] 78 gm TOP ASDIRECTED PRN Docusate Sodium [Colace] 100 mg PO BID PRN Ibuprofen [Motrin] 800 mg PO Q8H PRN Lanolin [Lansinoh HPA] See Dose Instructions TOP ASDIRECTED PRN bisacodyL [Dulcolax] 10 mg RECTAL ONETIME PRN oxyCODONE 5 mg PO Q2H PRN witch Sandra [Tucks] 1 pad TOP ASDIRECTED PRN Assess Lochia [WOMSER] Per Unit Routine Assess Uterine Involution [WOMSER] Per Unit Routine Breast Pump [WOMSER] Per Unit Routine Peripheral IV Discontinue [OM.PC] Routine Resuscitation Status Routine 10/02/19 22:42 Ice Therapy [OM.PC] Per Unit Routine Perineal Care [OM.PC] Per Unit Routine Sitz Bath [OM.PC] Per Unit Routine 10/03/19 Breakfast Regular Diet [DIET] - Plan Plan:: Agree with the above. Continue . Baby Rh negative; Rhogam not indicated. Desires discharge home at 24 hours ; reviewed discharge precautions/instructions.
--- NOTE | 2019-10-03 08:11 | PCM48HPAN ---
Post Anesthesia Note - EVALUATION WITHIN 48HRS OF ANESTHETIC Vital Signs in Normal Range: Yes Patient Participated in Evaluation: Yes Respiratory Function Stable: Yes Airway Patent: Yes Cardiovascular Function Stable: Yes Hydration Status Stable: Yes Pain Control Satisfactory: Yes (Denies pain at rest, 3-4/10 pain c/ ambulation. Reports good pain control ) Nausea and Vomiting Control Satisfactory: Yes (Denies nausea/vomiting) Mental Status Recovered: Yes Vital Signs: Last Vital Signs Temp 36.4 C 10/03/19 07:55 Pulse 82 10/03/19 07:55 Resp 18 10/03/19 07:55 BP 126/72 10/03/19 07:55 Pulse Ox 95 10/03/19 07:55 - COMMENTS/OBSERVATIONS Free Text/Narrative:: Ambulating without difficulty, reports full return of strength and sensation to BLE
--- NOTE | 2019-10-03 09:05 | OR ---
SURGEON: Susi Charles MD DATE OF PROCEDURE: 10/02/2019 PREOPERATIVE DIAGNOSES: 1. A 24-year-old G1, P0, at 41 weeks and 3 days' gestation. 2. Induction of labor for late term. 3. Group B Streptococcus negative. POSTOPERATIVE DIAGNOSES: 1. A 24-year-old G1, P1-0-0-1, status post spontaneous vaginal delivery at 41 weeks and 4 days' gestation. 2. Group B Streptococcus negative. 3. First-degree perineal laceration. PROCEDURES: 1. Spontaneous vaginal delivery. 2. Repair of a first-degree perineal laceration. PRIMARY SURGEON: Susi Charles MD INFORMATION SECURITY OFFICER: oJse C Vaughan, medical student. ANESTHESIA: Epidural. ESTIMATED BLOOD LOSS: 400 mL. FINDINGS: A live male in a cephalic presentation. scores were 8 and 9 at 1 and 5 minutes respectively. Weight was 4270 g. The placenta was intact and with a 3-vessel cord. First-degree perineal laceration. INDICATIONS: This is a 24-year-old G1, P0, who presented at 41 weeks and 3 days' gestation for a planned induction of labor due to late term. Upon presentation, her cervix was 2 cm dilated. She received 4 doses of Cytotec for cervical ripening. After the 4th dose, she was found to be 4 cm dilated and tomas every 2 to 3 minutes. She was started on Pitocin. She had spontaneous rupture of membranes with clear fluid noted. She received an epidural at approximately 5 to 6 cm dilated. She progressed to complete cervical dilation and began pushing. I was called to the room. DESCRIPTION OF PROCEDURE: Over the next 1 hour, the patient pushed with contractions with subsequent descent. She delivered a live male infant. The head was delivered, followed quickly by the shoulders and the remainder of the body. Body cord x1 was reduced after delivery of the body. The infant was placed on the maternal abdomen. After approximately 60 seconds, the cord was clamped and cut. The placenta then delivered via the Strong-Bettencourt maneuver intact and with a 3- vessel cord. The perineum was inspected, and a first-degree perineal laceration was noted. It was repaired to anatomy and hemostasis with 2-0 Vicryl suture. The fundus was firm below the umbilicus. Estimated blood loss was 400 mL. The infant and the patient tolerated the delivery well. DIEGO / MODL /[id number] ROS
== END 2019-10-03 23:40 | disposition home or self-care (01) | DRG 560 ==
LOC: MW.OB 16:53 → UNDOADMOB 16:53 → INTOOBSV 22:41 → OBSVTOIN 22:41 → MW.OB 10-02 22:13 → OBSVTOIN 10-02 22:13 → MW.OB 10-03 01:01 → UNDODISIN 10-03 23:40
PROVIDERS: ADMIT Obstetrics & Gynecology; ATTEND Obstetrics & Gynecology
PROC: 10E0XZZ Delivery of Products of Conception, External Approach (ICD-10-PCS; principal; 2019-10-02)
PROC: 3E0P7VZ Introduction of Hormone into Female Reproductive, Via Natural or Artificial Opening (ICD-10-PCS; 2019-10-02)
PROC: 0HQ9XZZ Repair Perineum Skin, External Approach (ICD-10-PCS; 2019-10-02)
PROC: 3E0R3BZ Introduction of Anesthetic Agent into Spinal Canal, Percutaneous Approach (ICD-10-PCS; 2019-10-02)
DX: O48.0 Post-term pregnancy (principal); Z37.0 Single live birth; Z3A.41 41 weeks gestation of pregnancy; O70.0 First degree perineal laceration during delivery; Z11.59 Encounter for screening for other viral diseases; O77.0 Labor and delivery complicated by meconium in amniotic fluid
CPT/HCPCS: 01967; 36415; 51702; 59025; 59409; 85014; 85018; 85027; 86592; 86850; 86900; 86901; A9270-GY; J2405; J2590; J2795; J3010; J7120; U0002

== ENCOUNTER 2020-09-06 06:18 | Day surgery (SDC) | payer BC ==
[~2020-09-06 06:18] MED LIST: Doxycycline 100 MG Cap PO ONE; Lactated Ringers 1,000 ML IV SCH
[2020-09-06] MEDS ORDERED: Ondansetron 4 MG/2 ML SDV ONE (06:26)
[2020-09-06] MEDS ORDERED: fentaNYL 100 MCG/2 ML SDV ONE (06:26)
[2020-09-06] MEDS ORDERED: Propofol 200 MG/20 ML SDV ONE (06:26)
[2020-09-06] MEDS ORDERED: Morphine 10 MG/ML Syringe IVPUSH PRN (06:28)
[2020-09-06] MEDS ORDERED: HYDROmorphone 2 MG/ML Syringe IVPUSH PRN (06:28)
[2020-09-06] MEDS ORDERED: fentaNYL 100 MCG/2 ML SDV IVPUSH PRN (06:28)
[2020-09-06] MEDS ORDERED: Metoclopramide 10 MG/2 ML SDV IVPUSH PRN (06:28)
[2020-09-06] MEDS ORDERED: Ondansetron 4 MG/2 ML SDV IVPUSH PRN (06:28)
[2020-09-06] MEDS ORDERED: Albuterol 0.083% 2.5 MG/3 ML Neb Soln NEB PRN (06:28)
[2020-09-06] MEDS ORDERED: Naloxone 0.4 MG/ML Syringe IVPUSH PRN (06:28)
--- NOTE | 2020-09-06 06:31 | PCM.PREANE ---
Preanesthetic Assessment - Anesthesia/Transfusion/Family Hx Anesthesia History: Prior Anesthesia Without Reaction Family History of Anesthesia Reaction: No Transfusion History: No Prior Transfusion(s) - Review of Systems General: No Symptoms Pulmonary: No Symptoms Cardiovascular: No Symptoms Gastrointestinal: No Symptoms Neurological: No Symptoms Other: Reports: None - Physical Assessment NPO Status Date: 09/06/20 NPO Status Time: 00:00 Height: 5 ft 5 in Weight: 134 lb ASA Class: 1 Mental Status: Alert & Oriented x3 Airway Class: Mallampati = 1 Dentition: Reports: Normal Dentition Thyro-Mental Finger Breadths: 4 Mouth Opening Finger Breadths: 4 ROM/Head Extension: Full Lungs: Clear to Auscultation, Normal Respiratory Effort Cardiovascular: Regular Rate, Regular Rhythm - Lab Values: Laboratory Last Values WBC 5.93 K/uL (4.0-11.0) 09/05/20 13:00 RBC 4.33 M/uL (4.30-5.90) 09/05/20 13:00 Hgb 13.3 g/dL (12.0-16.0) 09/05/20 13:00 Hct 39.0 % (36.0-46.0) 09/05/20 13:00 MCV 90.1 fL (80.0-98.0) 09/05/20 13:00 MCH 30.7 pg (27.0-32.0) 09/05/20 13:00 MCHC 34.1 g/dL (31.0-37.0) 09/05/20 13:00 RDW Std Deviation 41.3 fl (28.0-62.0) 09/05/20 13:00 RDW Coeff of Mariely 13 % (11.0-15.0) 09/05/20 13:00 Plt Count 229 K/uL (150-400) 09/05/20 13:00 MPV 10.00 fL (7.40-12.00) 09/05/20 13:00 Nucleated RBC % 0.0 /100WBC 09/05/20 13:00 Nucleated RBCs # 0 K/uL 09/05/20 13:00 Blood Type B NEGATIVE 09/05/20 13:00 Antibody Screen NEGATIVE 09/05/20 13:00 Rhogam Indicated YES 09/05/20 13:00 - Allergies Allergies/Adverse Reactions: Allergies Allergy/AdvReac Type Severity Reaction Status Date / Time No Known Allergies Allergy Verified 09/04/20 14:47 - Blood Blood Available: No - Anesthesia Plan Pre-Op Medication Ordered: None - Acknowledgements Anesthesia Type Planned: General Anesthesia Pt an Appropriate Candidate for the Planned Anesthesia: Yes Alternatives and Risks of Anesthesia Discussed w Pt/Guardian: Yes Pt/Guardian Understands and Agrees with Anesthesia Plan: Yes PreAnesthesia Questionnaire - Past Health History Medical/Surgical History: Denies Medical/Surgical History HEENT History: Reports: None Cardiovascular History: Reports: None Respiratory History: Reports: None Gastrointestinal History: Reports: None Genitourinary History: Reports: None BRANCH CHIEF History: Reports: Musculoskeletal History: Reports: None Neurological History: Reports: None Psychiatric History: Reports: None Endocrine/Metabolic History: Reports: None Hematologic History: Reports: None Immunologic History: Reports: None Oncologic (Cancer) History: Reports: None Dermatologic History: Reports: None - Infectious Disease History Infectious Disease History: Reports: Chicken Pox - Past Surgical History Head Surgeries/Procedures: Reports: None HEENT Surgical History: Reports: Oral Surgery Cardiovascular Surgical History: Reports: None Respiratory Surgical History: Reports: None GI Surgical History: Reports: Cholecystectomy Female Surgical History: Reports: None Endocrine Surgical History: Reports: None Neurological Surgical History: Reports: None Musculoskeletal Surgical History: Reports: None Oncologic Surgical History: Reports: None - SUBSTANCE USE Tobacco Use Status *Q: Never Tobacco User - HOME MEDS Home Medications: Home Meds . [No Known Home Meds] 09/04/20 [History] - CURRENT (IN HOUSE) MEDS Current Meds: Current Medications Lactated Ringer's (Ringers, Lactated) 1,000 mls @ 125 mls/hr IV ASDIRECTED PAYAM Discontinued Medications Doxycycline Hyclate (Doxycycline 100 Mg Cap) 200 mg PO ONETIME ONE Stop: 09/06/20 05:31 Fentanyl (Fentanyl 100 Mcg/2 Ml Sdv) Confirm Administered Dose 100 mcg .ROUTE .STK-MED ONE Stop: 09/06/20 06:27 Ondansetron HCl (Ondansetron 4 Mg/2 Ml Sdv) Confirm Administered Dose 4 mg .ROUTE .STK-MED ONE Stop: 09/06/20 06:27 Propofol (Propofol 200 Mg/20 Ml Sdv) Confirm Administered Dose 200 mg .ROUTE .STK-MED ONE Stop: 09/06/20 06:27
[2020-09-06] MEDS ORDERED: Dexamethasone 4 MG/ML 5 ML MDV ONE (06:33)
[2020-09-06] MEDS ORDERED: Ketorolac 15 MG/ML SDV IVPUSH ONE (07:21)
--- NOTE | 2020-09-06 07:26 | PCM.OPNOTE ---
- General Post-Op/Procedure Note Date of Surgery/Procedure: 09/06/20 Operative Procedure(s): Suction dilation & curettage Findings: Anteverted uterus, 9-10 week size, moderate amount of products of conception Pre Op Diagnosis: 25yo with missed at 10 weeks. hydrops on US Post-Op Diagnosis: Same Anesthesia Technique: General LMA Primary Surgeon: Susi Charles Anesthesia Provider: Cm Partida Pathology: Products of conception, sent for chromosomal analysis Fluid Replacement, Intraop: 1,000 EBL in mLs: 200 Complications: None Condition: Good Free Text/Narrative:: 200mg Doxycycline po given in pre-op Will receive Rhogam prior to discharge due to Rh negative status
[2020-09-06] MEDS ORDERED: Ketorolac 30 MG/ML SDV IVPUSH ONE (07:30)
--- NOTE | 2020-09-06 08:04 | PCM.POSTAN ---
POST ANESTHESIA ASSESSMENT - MENTAL STATUS Mental Status: Alert, Oriented - VITAL SIGNS Vital Signs: Last Vital Signs Temp 97.2 F 09/06/20 07:44 Pulse 85 09/06/20 07:44 Resp 15 09/06/20 07:44 BP 117/60 09/06/20 07:44 Pulse Ox 95 09/06/20 07:44 - RESPIRATORY Respiratory Status: Respiratory Rate WNL, Airway Patent, O2 Saturation Stable - CARDIOVASCULAR CV Status: Pulse Rate WNL, Blood Pressure Stable - GASTROINTESTINAL GI Status: No Symptoms - POST OP HYDRATION Hydration Status: Adequate & Stable
--- NOTE | 2020-09-06 08:05 | PCM48HPAN ---
Post Anesthesia Note - EVALUATION WITHIN 48HRS OF ANESTHETIC Vital Signs in Normal Range: Yes Patient Participated in Evaluation: Yes Respiratory Function Stable: Yes Airway Patent: Yes Cardiovascular Function Stable: Yes Hydration Status Stable: Yes Pain Control Satisfactory: Yes Nausea and Vomiting Control Satisfactory: Yes Mental Status Recovered: Yes Vital Signs: Last Vital Signs Temp 97.2 F 09/06/20 07:44 Pulse 85 09/06/20 07:44 Resp 15 09/06/20 07:44 BP 117/60 09/06/20 07:44 Pulse Ox 95 09/06/20 07:44
--- NOTE | 2020-09-06 10:33 | OR ---
SURGEON: Susi Charles MD DATE OF PROCEDURE: 09/06/2020 PREOPERATIVE DIAGNOSES: 1. 25-year-old, 2, para 1-0-0-1 at 10 weeks' gestation with missed . 2. hydrops per ultrasound. POSTOPERATIVE DIAGNOSES: 1. 25-year-old, 2, para 1-0-0-1 at 10 weeks' gestation with missed . 2. hydrops per ultrasound. PROCEDURE: Suction, dilation, and curettage. ANESTHESIA: LMA by Dr. Haynes. IV FLUIDS: 1000 mL LR. ESTIMATED BLOOD LOSS: 200 mL. ANTIBIOTIC PROPHYLAXIS: 200 mg Doxycycline given prior to surgery. PATHOLOGY: Products of conception sent for chromosomal analysis. FINDINGS: A 9 cm anteverted uterus. Moderate amount of products of conception. Uterus firm with scant bleeding at the end of the procedure. DESCRIPTION OF PROCEDURE: The patient was taken to the operating room where LMA was obtained. She was placed in the dorsal lithotomy position with legs in Yellofin stirrups. She was prepared and draped in normal sterile fashion. A Graves speculum was inserted into the vagina. The anterior lip of the cervix was grasped with an Allis clamp. The cervix was sequentially dilated with Hegar dilators to accommodate a 9 mm suction curette. The curved 9 mm suction curette was advanced to the fundus. The suction was then started. The products of conception were evacuated with the curette rotating on the outward movement. After the delivery of the products of conception were obtained, a sharp curettage was performed with a small size curette. Additional products of conception were felt to be noted on the posterior wall of the uterus. An additional curettage with the suction was performed. A second sharp curettage was performed and a gritty texture was noted in all areas of the uterus. There was minimal vaginal bleeding noted. The Allis clamp was removed from the cervix. No bleeding was noted. The speculum was removed. A bimanual exam was performed and the uterus had significantly decreased in size and was firm. The patient awakened and taken to the recovery room in stable condition. She will receive RhoGAM prior to discharge because of Rh negative status. She tolerated the procedure well. All sponge and lap counts were correct. [id number] / MODL /[id number] MTDD
== END 2020-09-06 08:20 | disposition home or self-care (01) ==
LOC: MW.SDS 06:18
PROVIDERS: ATTEND Obstetrics & Gynecology
DX: O02.1 Missed abortion (principal); Z3A.10 10 weeks gestation of pregnancy; O33.7XX0 Maternal care for disproportion due to other fetal deformities, not applicable or unspecified; Z79.899 Other long term (current) drug therapy; Z90.49 Acquired absence of other specified parts of digestive tract
CPT/HCPCS: 36415; 59820; 85027; 86850; 86900; 86901; 88233; 88305; 90384; A9270; J1100; J2704; J7120; 01965; 36430; J2405; J2790; J3010

== ENCOUNTER 2021-05-19 16:31 | Emergency (ER) | payer BC ==
[2021-05-19] MEDS ORDERED: Sodium Chloride 0.9% 1,000 ML IV ONE ×2 (16:35→17:36)
[2021-05-19] MEDS ORDERED: Ondansetron 4 MG/2 ML SDV IVPUSH ONE (16:35)
[2021-05-19 17:16] LABS: BLOOD UREA NITROGEN,BUN 8 mg/dL (7.0-18.0); CARBON DIOXIDE,CO2 25.1 mmol/L (21.0-32.0); CHLORIDE,CL 105 mmol/L (98-107); GLUCOSE RANDOM 105 mg/dL (74-106); POTASSIUM,K 3.5 mmol/L (3.5-5.1); SODIUM,NA 139 mmol/L (136-145)
== END 2021-05-19 18:26 | disposition home or self-care (01) ==
LOC: MW.ED 16:31
DX: O21.0 Mild hyperemesis gravidarum (principal); Z3A.14 14 weeks gestation of pregnancy
CPT/HCPCS: 36415; 80053; 81003; 85025; 96374; 99284; J2405; J7030